=== PATIENT | male | born 1940 | race Caucasian/White ===

== ENCOUNTER → 2016-03-31 | Outpatient (CLI) | payer MEDICARE, OTHER ==
[~2016-03-31] MED LIST: LISINOPRIL20 MG PO; LO-DOSE ASPIRIN81 M1 PO; MIRALAX17 GM PO; NORVASC5 MG PO; PROTONIX40 MG PO; VITAMIN D1000 UNIT; VITAMIN D2000 UNIT PO; XANAX1 MG PO
== END | disposition home or self-care (01) ==
LOC: CDC 11:24
DX: Z01.810 Encounter for preprocedural cardiovascular examination (principal)
CPT/HCPCS: 93000